=== PATIENT | female | born 1990 | race Caucasian/White ===

== ENCOUNTER 2025-04-24 23:10 | Emergency (ER) | payer OTHER, SELFPAY ==
--- NOTE | ~2025-04-24 | CT_ITS ---
CLINICAL HISTORY: biliary colic?early cholecystitis? CT abdomen and pelvis with contrast Comparison: None provided Findings: The lung bases are clear. The gallbladder appears normal. No gallstones are seen. There is no pericholecystic fat stranding. The liver, pancreas, spleen, and adrenal glands are unremarkable. There are a few punctate bilateral nonobstructing renal stones. There is no hydronephrosis. There is a moderate amount of stool in the colon. The appendix is normal. The remainder of the gastrointestinal tract is unremarkable. There is no free fluid or free air. There are no enlarged lymph nodes. The aorta and IVC are normal. Uterus and adnexa are unremarkable. The bladder is unremarkable. There is no fracture or suspicious lytic or sclerotic lesion. IMPRESSION: 1. No acute abnormality in the abdomen or pelvis. 2. Punctate bilateral nonobstructing renal stones. This document has been electronically signed by: Riccardo Thomas MD on 04/25/2025 02:44:27
[2025-04-24 23:11] VITALS: BP 115/68; PULSE 86; RESP 18; TEMP 36.7; O2SAT 99; BMI 24.2
[2025-04-24 23:59] LABS: Hematocrit 38.4 % (37.0-47.0); Hemoglobin 13.0 g/dl (12.0-16.0); Imm Gran Abs Auto 0.02 X10*3/uL (0.00-0.03); Imm Gran Pct Auto 0.3 % (0.0-0.4); Lymphocytes Absolute Auto 2.2 X10*3/uL (1.2-4.9); MANUAL DIFF FLAG NO; Mean Corpuscular HGB Conc 33.9 g/dl (31.0-35.0); Mean Corpuscular Hemoglobin 28.2 pg (27.0-33.0); Mean Corpuscular Volume 83.3 fL (80.0-98.0); NRBC Abs Auto 0.000 X10*3/uL (0.0-0.012); NRBC Pct Auto 0.0 /100WBC (0.0-0.2); Platelet Count 259 X10*3/uL (160-400); Red Blood Count 4.61 X10*6/uL (4.20-5.50); White Blood Count 7.2 X10*3/uL (4.8-10.8)
[2025-04-25] VITALS: RESP 20
[2025-04-25 00:15] LABS: Alanine Aminotransferase 20 U/L (0-31); Albumin Level 4.8 g/dL (3.5-5.0); Alkaline Phosphatase 50 U/L (39-117); Anion Gap 11 (12-20); Aspartate Amino Transferase 25 U/L (5-31); Blood Urea Nitrogen 20 mg/dL (9-16); COVID-19 Test Negative (Negative); Calcium 9.6 mg/dL (8.4-10.2); Carbon Dioxide 25 mmol/L (22-29); Chloride 106 mmol/L (96-108); Creatinine Clr Calc Pharmacy 88.2; Estimated Glomerular Filt Rate > 60; IDNOW Serial# 152EDE1D; IDNOW Serial# 16C4AD1C; Influenza B2 Negative (Negative); Lipase 34 U/L (8-78); Potassium 3.3 mmol/L (3.3-5.1); Sodium 139 mmol/L (135-145); Total Protein 7.8 g/dL (6.5-8.0)
[2025-04-25] MEDS: Sucralfate Oral Suspension 1 GM/10 ML ORAL.SUSP PO (00:45)
[2025-04-25 00:51] VITALS: RESP 20
[2025-04-25 01:25] VITALS: RESP 18
[2025-04-25] MEDS: iohexoL 350 MG/ML 100 ML INFUS..BTL IV (01:31)
--- NOTE | 2025-04-25 01:51 | ED_ITS ---
HPI - General Adult General Chief complaint: Nausea/Vomiting/Diarrhea Stated complaint: N/V/D Time Seen by Provider: 04/25/25 00:28 Source: patient Limitations: no limitations History of Present Illness ED Provider: Krystin Castellanos PA-C HPI narrative: 35-year-old female presents with the acute onset abdominal pain. Patient states she was eating, she had dinner, then developed acute onset upper abdominal discomfort. Pain over epigastric region radiates to the right side at times. Associated nausea vomiting. Patient is very uncomfortable, she is unable to describe the nature of her discomfort. Denies fever. Denies diarrhea. Related Data Previous Rx's ?Medication ?Instructions ?Recorded sucralfate 100 mg/mL oral 10 ml PO QID PRN indigestion #300 04/25/25 suspension (Carafate) mL Allergies Allergy/AdvReac Type Severity Reaction Status Date / Time Penicillins Allergy Angioedema Verified 04/24/25 23:14 Review of Systems 2 Review of Systems: Yes all other systems are reviewed and are negative Constitutional: Constitutional: Denies fatigue and Denies fever(s) Cardiovascular: Cardiovascular: Denies chest pain and Denies dyspnea Respiratory: Respiratory: Denies dyspnea Gastrointestinal: Gastrointestinal: Reports abdominal pain, Denies diarrhea, Reports nausea and Reports vomiting Genitourinary: Genitourinary: Denies dysuria Musculoskeletal: Musculoskeletal: Denies back pain Endocrine: Endocrine: Denies fatigue [facility] Past Medical History Attestation statement: The following information was validated with the patient. Social History Social History Smoked in Last 30 Days: No Use of substances other than those prescribed or required for medical reasons: No Advance Directives: No Advance Directives Information Provided: Yes Patient : No Physical Exam ED Vital Signs: Vital Signs - 24 hr 04/24/25 23:11 04/25/25 00:00 04/25/25 00:51 Temperature 98.0 F Pulse Rate 86 Respiratory Rate 18 20 20 Blood Pressure 115/68 Pulse Oximetry 99 Oxygen Delivery Method Room Air 04/25/25 01:25 04/25/25 02:00 Temperature Pulse Rate Respiratory Rate 18 18 Blood Pressure Pulse Oximetry Oxygen Delivery Method BMI result Body Mass Index 24.2 Const Other: Alert, appears uncomfortable Orientation/consciousness: patient oriented x3 Resp Effort & Inspection: normal respiratory effort Cardio Other: Normal peripheral perfusion GI Other: Abdomen is soft, nondistended, mild to moderate tenderness epigastric and right upper quadrant without guarding Skin Other: Warm dry no rash Neuro General: patient oriented x3, gait normal, no focal motor deficits and CN's II- XI intact bilaterally Psych Other: Calm cooperative Medications Administered Discontinued Medications Generic Name Dose Route Start Last Admin Trade Name Kevanq PRN Reason Stop Dose Admin Sodium Chloride 1,000 mls @ 999 mls/hr 04/25/25 00:45 04/25/25 01:50 Ns IV 04/25/25 01:45 Infused .Q1H1M JERSON Infusion Iohexol 100 ml 04/25/25 01:31 04/25/25 01:31 Iohexol 350 Mg/Ml 100 Ml Infus..Btl IV 04/25/25 01:32 85 ml ONCE ONE Administration Morphine Sulfate 4 mg 04/25/25 00:47 04/25/25 00:51 Morphine Sulfate 4 Mg/Ml Cartridge IVPUSH 04/25/25 00:48 4 mg ONCE ONE Administration Protocol Ondansetron HCl 4 mg 04/25/25 00:39 04/25/25 00:45 Ondansetron Hcl 4 Mg/2 Ml Vial IVPUSH 04/25/25 00:40 4 mg ONCE ONE Administration Sucralfate 1 gm 04/25/25 00:39 04/25/25 00:45 Sucralfate Oral Suspension 1 Gm/10 Ml Oral.Susp PO 04/25/25 00:40 1 gm ONCE ONE Administration Medical Decision Making Medical Decision Making MDM Narrative: 35-year-old female presents with the acute onset abdominal pain. Patient states she was eating, she had dinner, then developed acute onset upper abdominal discomfort. Pain over epigastric region radiates to the right side at times. Associated nausea vomiting. Patient is very uncomfortable, she is unable to describe the nature of her discomfort. Denies fever. Denies diarrhea. No known chronic issues History: Per patient I have considered the following differential diagnoses: Biliary colic, cholecystitis, GERD/gastritis, pancreatitis Plan: Given distribution of discomfort in nature of symptoms, I am most concerned for underlying biliary pathology. She could have poorly controlled GERD that has triggered by the pizza. Screening labs already completed and are unremarkable, lipase not elevated, this is clearly not pancreatitis. LFTs are normal as well, therefore this could be biliary colic without acute cholecystitis. Obtaining a CT scan, given we are unable to obtain an ultrasound overnight. Giving fluids Zofran morphine and Carafate. I have independently reviewed the following tests: Labs: No leukocytosis, not anemic, no electrolyte abnormality LFTs not elevated lipase within normal limit, viral panel negative, not CT abdomen and pelvis:Findings: The lung bases are clear. The gallbladder appears normal. No gallstones are seen. There is no pericholecystic fat stranding. The liver, pancreas, spleen, and adrenal glands are unremarkable. There are a few punctate bilateral nonobstructing renal stones. There is no hydronephrosis. There is a moderate amount of stool in the colon. The appendix is normal. The remainder of the gastrointestinal tract is unremarkable. There is no free fluid or free air. There are no enlarged lymph nodes. The aorta and IVC are normal. Uterus and adnexa are unremarkable. The bladder is unremarkable. There is no fracture or suspicious lytic or sclerotic lesion. IMPRESSION: 1. No acute abnormality in the abdomen or pelvis. 2. Punctate bilateral nonobstructing renal stones. Differential Diagnosis Differential Diagnoses: The differential diagnosis associated with the presentation includes See [facility] Admission/Observation Consideration of admission/observation: Escalation of care including admission/observation considered Not applicable Lab Data [facility] Lab Attestation statement: I reviewed the patient's lab results. 04/24/25 23:49 04/24/25 23:49 Labs: Lab Results 04/24/25 Range/Units 23:49 WBC 7.2 (4.8-10.8) X10*3/uL RBC 4.61 (4.20-5.50) X10*6/uL Hgb 13.0 (12.0-16.0) g/dl Hct 38.4 (37.0-47.0) % MCV 83.3 (80.0-98.0) fL MCH 28.2 (27.0-33.0) pg MCHC 33.9 (31.0-35.0) g/dl RDW 11.5 (11.0-16.0) % Plt Count 259 (160-400) X10*3/uL MPV 10.0 (9.4-12.3) fL Immature Gran % (Auto) 0.3 (0.0-0.4) % Neut % (Auto) 60.2 (45-73) % Lymph % (Auto) 30.3 (20-40) % Newton % (Auto) 7.1 (2-11) % Eos % (Auto) 1.5 (0-4) % Baso % (Auto) 0.6 (0-2) % Lymph # (Auto) 2.2 (1.2-4.9) X10*3/uL Newton # (Auto) 0.5 (0.1-1.2) X10*3/uL Eos # (Auto) 0.1 (0.0-0.4) X10*3/uL Baso # (Auto) 0.0 (0.0-0.2) X10*3/uL Abs Immat Gran (auto) 0.02 (0.00-0.03) X10*3/uL Absolute Neuts (auto) 4.3 (2.0-8.3) x10*3/uL Absolute Nucleated RBC 0.000 (0.0-0.012) X10*3/uL Nucleated RBC % (auto) 0.0 (0.0-0.2) /100WBC Sodium 139 (135-145) mmol/L Potassium 3.3 (3.3-5.1) mmol/L Chloride 106 (96-108) mmol/L Carbon Dioxide 25 (22-29) mmol/L Anion Gap 11 L (12-20) BUN 20 H (9-16) mg/dL Creatinine 0.67 (0.5-1.4) mg/dL Estim Creat Clear Calc 88.2 Estimated GFR > 60 Random Glucose 100 (60-115) mg/dL Calcium 9.6 (8.4-10.2) mg/dL Total Bilirubin 0.2 (0.0-1.0) mg/dL AST 25 (5-31) U/L ALT 20 (0-31) U/L Alkaline Phosphatase 50 (39-117) U/L Total Protein 7.8 (6.5-8.0) g/dL Albumin 4.8 (3.5-5.0) g/dL Lipase 34 (8-78) U/L Beta HCG, Quant < 2 mIU/mL COVID-19 (VLADIMIR) Negative (Negative) COVID-19 Clin Com See Note Influenza Type A (HAVEN) Negative (Negative) Influenza Type B (HAVEN) Negative (Negative) Influenza A & B Note See Note Radiology Impression Discussion of test interpretation with radiology: I have reviewed the radiologist's reading. Discharge Plan Discharge Clinical Impression: Constipation, GERD (gastroesophageal reflux disease) Patient Disposition: Home, Self-Care Instructions: Constipation (ED), GERD (Gastroesophageal Reflux Disease) (ED) Additional Instructions: You had no lab abnormalities. The CT scan revealed that you are very constipated. See home care instructions. Constipation can be a trigger for nausea vomiting and for acid reflux/indigestion related symptoms. For the reflux/GERD symptoms, do not eat 3 hours before bed. Eating small meals throughout the day can help to deter symptoms. Some common food triggers that can worsen GERD symptoms are spicy food, acidic food, greasy fatty food, carbonation, alcohol, caffeine. Use the Carafate as needed for upper abdominal discomfort/indigestion. In regard to the constipation, purchase [id number] Colace, this is a stool softener, take it twice a day. Purchase [id number] MiraLax, take it 3 to 4 times a day, until you begin having multiple large volume bowel movements. Once your bowel habits self regulate, use the Colace daily, with the MiraLax daily, to help maintain regularity. Follow up with your primary care provider as needed. Prescriptions: New sucralfate [Carafate] 100 mg/mL suspension 10 ml PO QID PRN (Reason: indigestion) Qty: 300 0RF Rx Instructions: swish in mouth and swallow; use after food/drink Print Language: Kiswahili
[2025-04-25 02:00] VITALS: RESP 18
[2025-04-25 03:57] VITALS: BP 89/55; PULSE 74; RESP 16; TEMP 36.8; O2SAT 98
== END 2025-04-25 03:58 | disposition home or self-care (01) ==
PROVIDERS: Physician Assistant Medical; Emergency Provider Emergency Medicine
DX: K59.00 Constipation, unspecified (principal); K21.9 Gastro-esophageal reflux disease without esophagitis; Z79.899 Other long term (current) drug therapy
CPT/HCPCS: 74177; 80053; 83690; 84702; 85025; 87502; 87635; 96361; 96374; 96375; 99284; 99285; J2270; J2405; Q9967

== ENCOUNTER → 2025-04-25 00:47 | Outpatient (BNV) | payer OTHER, SELFPAY | PROVIDERS: Emergency Provider Emergency Medicine; Visit Provider Radiology Diagnostic Radiology | DX: N20.0 Calculus of kidney (principal) | CPT/HCPCS: 74177 ==